=== PATIENT | female | born 1975 | race Caucasian/White ===

== ENCOUNTER 2016-05-06 13:35 | Emergency (ER) | payer OTHER ==
[~2016-05-06] VITALS: Ht 160 cm; Wt 61.2 kg
[~2016-05-06 13:35] MED LIST: ALEVE220 MG PO; AMOXICILLIN500 MG PO; ANAPROX DS550 MG PO; AUGMENTIN 875 M1 TAB PO; CIPRO250 MG PO; CLINDAMYCIN HC300 MG PO; DAYPRO600 M1 PO; DIAZEPAM10 M1 PO; DOXYCYCLINE PO; FIORICET 325 MG1 TAB PO; FLEXERIL10 MG PO; Fioricet 325 MG1 TAB PO; HYDROCODONE BIT1 T11 PO; KEFLEX500 M1 PO; MOTRIN800 MG PO; NAPROSYN500 MG PO; NEURONTIN300 MG PO; NKHM; PENICILLIN VK500 MG PO; PREDNISONE10 MG PO; Peridex 473 ML473 ML PO; ROBAXIN750 MG PO; TRAMADOL HCL50 MG; TRAMADOL HCL50 MG PO; TRIMOX500 MG PO; ULTRAM50 MG PO; VALIUM10 MG PO; VIBRAMYCIN100 MG PO; VICODIN 5/500 505 MG PO; XANAX1 MG PO
[2016-05-06] MEDS ORDERED: NAPROSYN500 MG PO (14:05)
[2016-05-06] MEDS ORDERED: AMOXICILLIN500 M2 PO (14:05)
== END 2016-05-06 14:13 | disposition home or self-care (01) ==
LOC: ED 13:35
DX: K08.89 Other specified disorders of teeth and supporting structures (principal); F17.200 Nicotine dependence, unspecified, uncomplicated; Z88.6 Allergy status to analgesic agent

== ENCOUNTER 2016-08-27 11:21 | Emergency (ER) | payer OTHER ==
[~2016-08-27] VITALS: Ht 160 cm; Wt 61.2 kg
[~2016-08-27 11:21] MED LIST changes: +AMOXICILLIN500 M2 PO
== END 2016-08-27 14:27 | disposition home or self-care (01) ==
LOC: ED 11:21
DX: S93.401A Sprain of unspecified ligament of right ankle, initial encounter (principal); S46.811A Strain of other muscles, fascia and tendons at shoulder and upper arm level, right arm, initial encounter; F17.200 Nicotine dependence, unspecified, uncomplicated; Z98.890 Other specified postprocedural states; Z98.51 Tubal ligation status; V49.59XA Passenger injured in collision with other motor vehicles in traffic accident, initial encounter; Y93.89 Activity, other specified; Y92.89 Other specified places as the place of occurrence of the external cause; Y99.9 Unspecified external cause status

== ENCOUNTER 2017-02-19 12:40 | Emergency (ER) | payer OTHER ==
[~2017-02-19] VITALS: Ht 160 cm; Wt 61.2 kg
[2017-02-19] MEDS ORDERED: PENICILLIN VK500 MG PO (12:59)
[2017-02-19] MEDS ORDERED: Peridex 473 ML473 ML PO (12:59)
[2017-02-19] MEDS ORDERED: NAPROSYN500 MG PO (12:59)
== END 2017-02-19 13:09 | disposition home or self-care (01) ==
LOC: ED 12:40
DX: K08.89 Other specified disorders of teeth and supporting structures (principal); F17.200 Nicotine dependence, unspecified, uncomplicated; F10.10 Alcohol abuse, uncomplicated

== ENCOUNTER 2017-04-23 00:32 | Emergency (ER) | payer OTHER ==
[~2017-04-23] VITALS: Wt 59.0 kg
== END 2017-04-23 04:12 | disposition home or self-care (01) ==
LOC: ED 00:32
DX: T40.2X1A Poisoning by other opioids, accidental (unintentional), initial encounter (principal); F10.10 Alcohol abuse, uncomplicated; Z79.899 Other long term (current) drug therapy; Y92.89 Other specified places as the place of occurrence of the external cause

== ENCOUNTER → 2018-12-03 | Emergency (ER) | payer OTHER | LOC: ED 22:40 | DX: Z02.83 Encounter for blood-alcohol and blood-drug test (principal); Z53.21 Procedure and treatment not carried out due to patient leaving prior to being seen by health care provider ==

== ENCOUNTER 2019-03-04 03:16 | Emergency (ER) | payer SELFPAY ==
[~2019-03-04] VITALS: Ht 167.6 cm; Wt 60.8 kg
--- NOTE | ~2019-03-04 | EKG ---
[place], [place] ELECTROCARDIOGRAM REPORT NAME: MERT MILLER UNIT #: [id number] ROOM: DOCTOR: EPIPHIVONNE DRAFT REPORT BIRTHDATE: [birth year] [facility] Test Date: 2019-03-04 Test Time: 03:34:03 Pat Name: MERT MILLER Department: Room: Gender: F Sales Operations: Mirtha Lloyd : 1975 Requested By: GAY COLLIER Order Number: [id number] Reading MD: Nick Haney MD Measurements Intervals [place] Rate: 142 P: IN: QRS: 66 QRSD: 100 T: 13 QT: 366 QTc: 563 Interpretive Statements Atrial fibrillation Ventricular premature complex ST depr, consider ischemia, inferior leads Prolonged QT interval Baseline wander in lead(s) V3,V4 Electronically Signed On 03-04-2019 13:42:32 PDT by Nick Haney MD CM:EKGRPT:ELECTROCARDIOGRAM REPORT [id number] GAY LAZO DRAFT REPORT GAY COLLIER DO
[2019-03-04 03:50] LABS: HEMATOCRIT 39.1 % (37.0-47.0); MEAN CELL VOLUME 100.8 fl (81.0-99.0); MEAN CORPUSCULAR HGB 30.9 pg (27.0-31.0); MEAN CORPUSCULAR HGB CONC 30.7 g/dl (33.0-37.0); MEAN PLATELET VOLUME 8.8 fl (9.6-12.3); NUCLEATED RED BLOOD CELL 0.1 % (0.0-0.0); PLATELET COUNT AUTOMATED 335 10*3/uL (130-400); RED BLOOD COUNT 3.88 10*6/uL (4.10-5.10); RED CELL DISTRI WIDTH 12.9 % (0-14.5); WHITE BLOOD COUNT 16.1 10*3/uL (4.8-10.8)
[2019-03-04 03:59] LABS: INTERNATIONAL NORM RATIO 1.1 (2.0-3.5)
[2019-03-04 04:04] LABS: BILIRUBIN NEGATIVE (NEGATIVE); BLOOD NEGATIVE (NEGATIVE); CLARITY SL CLOUDY (CLEAR); COLOR YELLOW (YELLOW); GLUCOSE NEGATIVE (NEGATIVE); KETONE NEGATIVE (NEGATIVE); LEUKO ESTERASE NEGATIVE (NEGATIVE); NITRITE NEGATIVE (NEGATIVE); PH 5.5 (5.0-9.0); SPECIFIC GRAVITY >= 1.030 (1.005-1.030); UROBILINOGEN 0.2 E.U./dl (0.2-1.0)
[2019-03-04 04:07] LABS: ALBUMIN 2.9 gm/dl (3.1-4.5); ALKALINE PHOSPHATASE 84 U/L (45-117); B-hCG (QUALITATIVE) NEGATIVE (NEGATIVE); BUN 12 mg/dl (7-24); CHLORIDE 107 mmol/L (98-107); CREATININE 2.07 mg/dL (0.55-1.02); POTASSIUM 4.5 mmol/L (3.5-5.1); SGOT/AST 430 IU/L (3-35); SGPT/ALT 299 U/L (12-78); SODIUM 143 mmol/L (136-145); TOTAL PROTEIN 6.1 gm/dL (6.4-8.2)
[2019-03-04 04:08] LABS: TROPONIN I 0.111 ng/ml (<0.045)
[2019-03-04 04:12] LABS: PLATELET SUFFICIENCY NORMAL (NORMAL); TOTAL CELLS COUNTED 100 #CELLS
[2019-03-04 04:30] LABS: ABG BASE EXCESS -11.7 mmol/L (-2.0-2.0); ABG HCO3 16.1 mmol/l (22-26); ARTERIAL BLOOD GAS PCO2 41.4 mmHg (35-45); ARTERIAL BLOOD GAS PH 7.201 (7.35-7.45)
[2019-03-04 04:42] LABS: EPITHELIAL CELLS 30-35; WBC 0-2 wbc/hpf (0-5)
[2019-03-04 04:58] LABS: URINE AMPHETAMINES < 1000 (1000ng/ml); URINE BARBITURATES < 200 (200ng/ml); URINE BENZODIAZEPINES > 200 (200ng/ml); URINE CANNABINOIDS (THC) < 50 (50ng/ml); URINE COCAINE > 300 (300ng/ml); URINE METHADONE < 300 (300ng/ml); URINE OPIATES > 300 (300ng/ml); URINE PHENCYCLIDINE < 25 (25ng/ml)
== END 2019-03-04 06:10 | disposition short-term general hospital (02) ==
LOC: ED 03:16
PROVIDERS: Emergency Medicine
DX: S06.9X9A Unspecified intracranial injury with loss of consciousness of unspecified duration, initial encounter (principal); T40.1X1A Poisoning by heroin, accidental (unintentional), initial encounter; I46.9 Cardiac arrest, cause unspecified; R40.20 Unspecified coma; X58.XXXA Exposure to other specified factors, initial encounter; Y93.89 Activity, other specified; Y92.89 Other specified places as the place of occurrence of the external cause; Y99.8 Other external cause status